=== PATIENT | male | born 1955 | race Caucasian/White ===

== ENCOUNTER 2021-12-28 08:52 | Emergency (ER) | payer MEDICARE, SELFPAY ==
--- NOTE | 2021-12-28 08:56 | ED.EAR ---
HPI - Ear Problem General Chief complaint: Ear Stated complaint: ear drum impaction Time Seen by Provider: 12/28/21 08:57 Source: patient and RN notes reviewed History of Present Illness HPI Narrative: Patient is a 66-year-old male who presents the urgent care with complaints of earwax to the left ear. Patient states that it has been bothering him for approximately 1 week and especially since Wednesday. Patient has been using Debrox and Q-tips to no avail. Patient states that he does have a tube to the right ear however not in the left. No other acute complaints. Denies of any pain to the ear. No acute distress noted. Patient aware of the plan of care. Some parts of this dictation were generated by voice recognition software and may contain typographical and/or grammatical inaccuracies. Related Data Home Medications Medication Instructions Recorded Confirmed aspirin [Aspirin Child] 81 mg PO DAILY 12/28/21 12/28/21 ezetimibe 10 mg PO DAILY 12/28/21 12/28/21 finasteride 5 mg PO DAILY 12/28/21 12/28/21 metoprolol succinate 25 mg PO DAILY 12/28/21 12/28/21 tamsulosin 0.4 mg PO BID 12/28/21 12/28/21 Allergies Allergy/AdvReac Type Severity Reaction Status Date / Time No Known Allergies Allergy Verified 12/28/21 09:21 Review of Systems Review of Systems: CONSTITUTIONAL: Denies fever, chills, or sweats. EYES: Denies visual changes, redness, or discharge. ENT: Denies rhinorrhea, congestion, sore throat, or otalgia. Reports of cerumen impaction to the left CARDIOVASCULAR: Denies chest pain, palpitations, or edema. RESPIRATORY: Denies cough or dyspnea. GASTROINTESTINAL: Denies abdominal pain, nausea, vomiting, or diarrhea. GENITOURINARY: Denies dysuria or hematuria. SKIN: Denies rash or itching. MUSCULOSKELETAL: Denies back pain, joint pain, or myalgia. NEUROLOGIC: Denies headache, numbness, or weakness. All other systems reviewed are negative, except as documented in HPI. PMFSH Comments At the time of my signature, I reviewed and agree with the nursing past medical, surgical, social, and family history. There is no relevant family history pertinent to the patient complaint. Exam Narrative: GENERAL: This is a well-nourished, well-developed patient, in no apparent distress. HEAD: normocephalic, atraumatic. EYES: PERRL. Sclera clear/white. Vision is grossly intact. EARS: External ears normal, auditory canals clear and without drainage with notable tube to the right, right TMs normal without perforation. Notable cerumen impaction to the left, inability to view TM. Hearing grossly intact. NOSE: External nose normal with no obvious nasal discharge, nares without redness, no rhinorrhea. THROAT: Mucous membranes moist NECK: Neck supple CARDIOVASCULAR: Regular rate and rhythm without murmurs, gallops, or rubs. RESPIRATORY: Clear to auscultation. Breath sounds equal bilaterally. No wheezes, rales, or rhonchi. GASTROINTESTINAL: Abdomen soft, non-tender, nondistended. Bowel sounds are active. No hepato-splenomegaly, or palpable masses. No guarding. SKIN: warm, intact with no suspicious lesions or rash, good texture and turgor. NEURO: awake, alert, and oriented to person, place and time. There were no obvious focal neurologic abnormalities. EXTREMITIES: No clubbing, cyanosis, or edema. Course Course Level of Care: Express Care Visit Vital Signs Vital signs: Vital Signs Temperature 97.2 F L 12/28/21 08:59 Pulse Rate 77 12/28/21 08:59 Respiratory Rate 16 12/28/21 08:59 Blood Pressure 125/75 12/28/21 08:59 Pulse Oximetry 98 12/28/21 08:59 Temperature 97.2 F L 12/28/21 08:59 Pulse Rate 77 12/28/21 08:59 Respiratory Rate 16 12/28/21 08:59 Blood Pressure 125/75 12/28/21 08:59 Pulse Oximetry 98 12/28/21 08:59 Reviewed Procedures Ear Wax Removal Both Ears: Cerumenolytic Used: other (50-50 water and peroxide) Results: Re-examined: cerumen removed completely TM Examination: TM(
[2021-12-28 08:59] VITALS: BP 125/75; PULSE 77; RESP 16; TEMP 36.2; O2SAT 98
== END 2021-12-28 09:45 | disposition home or self-care (01) ==
PROVIDERS: Emergency Provider Nurse Practitioner Family
DX: H61.23 Impacted cerumen, bilateral (principal); E78.00 Pure hypercholesterolemia, unspecified; I10 Essential (primary) hypertension; R01.1 Cardiac murmur, unspecified; N40.0 Benign prostatic hyperplasia without lower urinary tract symptoms
CPT/HCPCS: 69210; 99203; G0463

== ENCOUNTER 2023-06-15 08:49 | Emergency (ER) | payer MEDICARE, SELFPAY ==
--- NOTE | ~2023-06-15 | XR_ITS ---
XR chest 2V 06/15/2023 09:19 Indication: Cough and congestion for 5 days Procedure: 2 view chest Comparison: No prior studies for comparison. Findings: There are lingular infiltrates which may represent atelectasis or pneumonia. Heart size nor mal. No pleural effusion, edema or pneumothorax. No acute osseous abnormality. Impression: 1: Lingular infiltrates may represent atelectasis and/or pneumonia. Reviewed, dictated and finalized at location A. Impression: 1: Lingular infiltrates may represent atelectasis and/or pneumonia.
--- NOTE | 2023-06-15 08:51 | ED.URI ---
HPI - URI/Sore Throat General Chief Complaint: Upper Respiratory Infection Stated Complaint: cold/ear Time Seen by Provider: 06/15/23 08:53 Source: patient and RN notes reviewed Mode of arrival: ambulatory Limitations: no limitations History of Present Illness HPI Narrative: Patient is a 68-year-old male who presents to [facility] with complaints of cough and congestion since . Patient reports a frequent nonproductive cough that is occasionally productive with green sputum. He also endorses generalized body aches and chills. Denies known fever. Denies chest pain or shortness of breath. He is not sure of any known sick contacts. He denies abdominal pain, nausea, vomiting, diarrhea. Patient states that he has also been experiencing right ear pain. He reports history of multiple surgeries on the ear. States that he has a tube in place at this time. However, he has had frequent ear infections in the right ear. Patient states that he took an at home Covid test on Wednesday, which was negative. His respirations are unlabored. He does not appear in any acute distress. Related Data Home Medications Medication Instructions Recorded Confirmed aspirin 81 mg chewable tablet 81 mg PO DAILY 12/28/21 06/15/23 ezetimibe 10 mg tablet 10 mg PO DAILY 12/28/21 06/15/23 finasteride 5 mg tablet 5 mg PO DAILY 12/28/21 06/15/23 metoprolol succinate 25 mg 25 mg PO DAILY 12/28/21 06/15/23 tablet,extended release 24 hr tamsulosin 0.4 mg capsule 0.4 mg PO BID 12/28/21 06/15/23 Allergies Allergy/AdvReac Type Severity Reaction Status Date / Time No Known Allergies Allergy Verified 06/15/23 09:03 Review of Systems Review of Systems: CONSTITUTIONAL: Denies fever or sweats. Reports chills. EYES: Denies visual changes, redness, or discharge. ENT: Reports right ear pain. Denies sore throat. Reports nasal congestion. CARDIOVASCULAR: Denies chest pain, palpitations, or edema. RESPIRATORY: Reports cough but denies dyspnea. GASTROINTESTINAL: Denies abdominal pain, nausea, vomiting, or diarrhea. GENITOURINARY: Denies dysuria or hematuria. SKIN: Denies rash or itching. MUSCULOSKELETAL: Denies back pain and joint pain. Reports myalgia. NEUROLOGIC: Denies headache, numbness, or weakness. Pertinent positives per HPI. PMFSH Comments At the time of my signature, I reviewed and agree with the nursing past medical, surgical, social, and family history. There is no relevant family history pertinent to the patient complaint. Exam Narrative: GENERAL: This is a well-nourished, well-developed patient, in no apparent distress. HEAD: normocephalic, atraumatic. EYES: Sclera clear/white. Vision is grossly intact. EARS: External ears normal, auditory canals clear and without drainage, TM normal without perforation on left. Right TM with tube; surrounding erythema. Hearing grossly intact. NOSE: External nose normal. Moderate nasal congestion. THROAT: Mucous membranes moist, posterior pharynx clear. NECK: Neck supple, non-tender without lymphadenopathy, masses or thyromegaly. CARDIOVASCULAR: Regular rate and rhythm without gallops or rubs. RESPIRATORY: Clear to auscultation. Breath sounds equal bilaterally. No wheezes, rales, or rhonchi. GASTROINTESTINAL: Abdomen soft, non-tender, nondistended. Bowel sounds are active. No hepato-splenomegaly, or palpable masses. No guarding. SKIN: warm, intact with no suspicious lesions or rash, good texture and turgor. NEURO: awake, alert, and oriented to person, place and time. There were no obvious focal neurologic abnormalities. Course Course Level of Care: Express Care Visit Vital Signs Vital signs: Vital Signs Temperature 97.8 F 06/15/23 08:56 Pulse Rate 74 06/15/23 08:56 Respiratory Rate 20 06/15/23 08:56 Blood Pressure 130/81 06/15/23 08:56 Pulse Oximetry 95 06/15/23 08:56 Oxygen Delivery Room Air 06/15/23 08:56 Temperature 97.8 F 06/15/23 08:56 Pulse Rate 74 06/15/23 08:56
[2023-06-15 08:56] VITALS: BP 130/81; PULSE 74; RESP 20; TEMP 36.6; O2SAT 95
== END 2023-06-15 09:35 | disposition home or self-care (01) ==
PROVIDERS: Emergency Provider Nurse Practitioner
DX: J18.9 Pneumonia, unspecified organism (principal); Z20.822 Contact with and (suspected) exposure to COVID-19; R01.1 Cardiac murmur, unspecified; E78.00 Pure hypercholesterolemia, unspecified; I10 Essential (primary) hypertension
CPT/HCPCS: 71046; 87426; 99213; C9803; G0463